=== PATIENT | female | born 1990 | race Hispanic/Latino ===

== ENCOUNTER 2019-04-08 23:03 | Emergency (ER) | payer OTHER ==
[2019-04-08] MEDS ORDERED: FAMOTIDINE 20MG TAB 20 MG TAB ONE (23:50)
== END 2019-04-08 23:57 | disposition home or self-care (01) ==
LOC: EDH 23:03
DX: K29.70 Gastritis, unspecified, without bleeding (principal); K21.9 Gastro-esophageal reflux disease without esophagitis